=== PATIENT | male | born 1965 | race Caucasian/White ===

== ENCOUNTER → 2016-06-18 | Outpatient (CLI) | payer BC ==
[~2016-06-18] MED LIST: GADAVIST IV PRN; OPTIRAY 320 IV PRN
--- NOTE | 2016-06-18 12:28 | DIAGNOSTIC IMAGING REPORT ---
CT ABD WITH IV AND ORAL CONT (CT) CLINICAL HISTORY: RECTAL CA COMPARISON STUDY: 01/19/2016 TECHNIQUE: Following the IV administration of 93 mL of Optiray-320, CT scan of the abdomen and pelvis was performed from the lung bases to the proximal femurs. Images are reviewed in the axial, sagittal, and coronal planes. IV contrast was administered without complication. CT DOSE: FINDINGS: Lower chest: The heart is normal in size and configuration, without pericardial effusion. The lung bases and pleural spaces are clear. Liver: There is hepatic steatosis. There is a nonspecific 12 mm hypervascular focus within the left lobe superiorly. This appears smaller than the hypodense focus described on the prior January study.. Gallbladder: Unremarkable. Spleen: Normal in size and attenuation. Pancreas: Unremarkable. Adrenal glands: Unremarkable. Kidneys: There is symmetric renal cortical enhancement. The kidneys are normal in size without hydronephrosis. Bowel: There is no pathologic upper abdominal bowel dilatation. No acute inflammatory changes are visualized. Peritoneum: There is no intraperitoneal free air or abdominal ascites. Vasculature: The abdominal aorta is normal in course and caliber. Adenopathy: None. Skeletal structures: No destructive osseous lesions are seen. IMPRESSION: 1. Hepatic steatosis 2. Nonspecific 12 mm hypervascular focus within the left lobe of the liver superiorly. 3. No evidence of pathologic adenopathy. Electronically signed by: Simon Sargent M.D. 06/18/2016 12:27 PM Dictated Date/Time: 06/18/2016 12:21 PM
--- NOTE | 2016-06-18 12:31 | DIAGNOSTIC IMAGING REPORT ---
CT OF THE CHEST WITH IV CONTRAST CLINICAL HISTORY: Rectal cancer. COMPARISON STUDY: Chest CTs #8 2016. TECHNIQUE: Following IV administration of 93 mL of Optiray-320, helical axial images of the chest were obtained. Images were viewed in the axial, sagittal and coronal planes. IV contrast was administered without complication. CT DOSE: 1119.23 mGy.cm FINDINGS: No enlarged axillary, mediastinal or hilar lymph nodes are present. The size of the heart is normal. There is no pericardial effusion. Central airways are patent. There is no consolidation to suggest pneumonia. A 7 mm perifissural nodule within the right upper lobe shown on image [id number] of January 19, 2016. Numerous tiny additional pleural nodules, several which are calcified, measuring up to 2 6 mm are also unchanged. There are no new pulmonary nodules. There are no suspicious osseous lesions. Subtle sclerosis of the left scapular tip is unchanged. The abdomen and pelvis will be reported separate. Fatty infiltration of the liver is noted. A 2 cm hypervascular left hepatic lobe lesion is unchanged in size since prior exam. This favors a hemangioma. IMPRESSION: 1. No convincing evidence of metastatic disease within the chest. 2. No change in several pulmonary nodules, the largest of which is a 7 mm perifissural right upper lobe nodule. These nodules are likely benign but a follow-up chest CT in 6 months to ensure stability is recommended. 3. 2 cm hypervascular left hepatic lobe lesion which is unchanged in size since prior exam and favors a hemangioma. Fatty liver. Electronically signed by: Jarocho Florian M.D. 06/18/2016 12:30 PM Dictated Date/Time: 06/18/2016 12:19 PM
--- NOTE | 2016-06-18 15:16 | DIAGNOSTIC IMAGING REPORT ---
MRI THE PELVIS WITHOUT A WITH GADOLINIUM CLINICAL HISTORY: Rectal carcinoma COMPARISON STUDY: CT scan dated 01/19/2016 FINDINGS: Imaging was performed in the sagittal coronal and axial planes, before and after the administration of 9.5 cc of intravenous Gadavist. There are no foci of pathologic marrow replacement. There is no pathologic bowel dilatation. There is no evidence of pathologic adenopathy. The patient's reported carcinoma is difficult to identify. There is loss of the normal signal differentiation between the muscularis propria and mucosa within the lower rectum. There is decreased signal within the left posterior lateral rectal wall which may represent treated neoplasm. There are no findings to indicate tumor spread into the surrounding perirectal fat. IMPRESSION: 1. The patient's prior rectal carcinoma is difficult to visualize with certainty 2. The perirectal soft tissues appear normal 3. There is no evidence of pathologic adenopathy. Electronically signed by: Simon Sargent M.D. 06/18/2016 3:15 PM Dictated Date/Time: 06/18/2016 2:51 PM
== END | disposition home or self-care (01) ==
LOC: C.CTS 10:53
PROVIDERS: ATTEND Colon & Rectal Surgery
DX: C20 Malignant neoplasm of rectum (principal); K76.0 Fatty (change of) liver, not elsewhere classified

== ENCOUNTER → 2017-01-02 | Outpatient (CLI) | payer BC ==
[2017-01-02 14:33] LABS: BLOOD UREA NITROGEN 15 mg/dl (7-18); CREATININE 1.23 mg/dl (0.60-1.40)
== END | disposition home or self-care (01) ==
LOC: C.LAB 11:45
PROVIDERS: ATTEND Colon & Rectal Surgery
DX: C20 Malignant neoplasm of rectum (principal)

== ENCOUNTER → 2017-01-07 | Outpatient (CLI) | payer BC ==
--- NOTE | 2017-01-07 10:09 | DIAGNOSTIC IMAGING REPORT ---
CT SCAN OF THE ABDOMEN AND PELVIS WITH IV CONTRAST CLINICAL HISTORY: Rectal carcinoma. COMPARISON STUDY: Abdominal CT dated 06/18/2016 and 01/19/2016. Pelvic MRI dated 06/18/2016. TECHNIQUE: Following the IV administration of 94 cc of Optiray 320, CT scan of the abdomen and pelvis is performed from the lung bases to the proximal femora. Images are reviewed in the axial, sagittal, and coronal planes. IV contrast was administered without complication. A dose lowering technique was utilized adhering to the principles of ALARA. CT DOSE: 1311.69 mGy.cm FINDINGS: Lung bases: The heart is normal in size and without pericardial effusion. The lung bases are clear. There is a tiny hiatal hernia. Liver: The contrast-enhanced liver is mildly enlarged measuring 18.3 cm in length. The liver demonstrates diffusely diminished attenuation consistent with hepatic steatosis. There is no intrahepatic biliary ductal dilatation. The hepatic veins and portal veins are patent. A 2.1 cm hypervascular lesion in the left lobe is again seen on image #60. An additional 1.4 cm lesion in the left lobe is also seen on image #60. Both lesions appear to demonstrate small foci of peripheral nodular enhancement. Gallbladder: Unremarkable. Spleen: The spleen is enlarged, measuring 15.8 cm in length. Pancreas: Unremarkable. Adrenal glands: Unremarkable. Kidneys: The contrast enhanced kidneys are normal in size and without hydronephrosis. The kidneys enhance symmetrically. Abdominal vasculature: The abdominal aorta is normal in course and caliber noting mild to moderate atherosclerotic calcification. Bowel: The patient's rectal lesion is not well-visualized. No bowel obstruction is seen. The appendix is well-visualized and normal. Peritoneum: There is no intraperitoneal free air or abdominal ascites. There is a small fat-containing umbilical hernia. Lymphadenopathy: None. Pelvic viscera: The prostate gland is mildly enlarged and heterogeneous. There is median lobe hypertrophy. The bladder wall appears mildly thickened and trabeculated suggesting chronic outlet obstruction. Skeletal structures: No lytic or blastic lesions are seen. IMPRESSION: 1. There is no evidence of metastatic disease in the abdomen or pelvis. 2. No rectal lesion is identified by CT. 3. Hepatomegaly and hepatic steatosis. 4. There are 2 hepatic lesions in the left lobe which measure up to 2.1 cm, unchanged dating back to 01/19/2016. Although incompletely characterized the appearance of these lesions strongly suggests benign hemangiomas. 5. Splenomegaly. 6. Additional findings as above. Electronically signed by: Henry Funk M.D. 01/07/2017 10:08 AM Dictated Date/Time: 01/07/2017 9:57 AM
--- NOTE | 2017-01-07 10:16 | DIAGNOSTIC IMAGING REPORT ---
(CHEST) THORAX WITH CT DOSE: HISTORY: Carcinoma RECTAL CANCER TECHNIQUE: Multiaxial CT images of the chest were performed following the intravenous administration of contrast. A dose lowering technique was utilized adhering to the principles of ALARA. COMPARISON: 06/18/2016 FINDINGS: No change in the minimal basilar nodularity procedure described. The dominant nodule adjacent to the right major fissure is unchanged in maximum dimension of 6 mm. There is no significant mediastinal or hilar adenopathy. No evidence for cardiac enlargement. Small benign hemangioma anterior right hepatic lobe IMPRESSION: Stable examination of the chest with unchanging low suspicion nodularity. A 1 year follow-up is felt to be sufficient The above report was generated using voice recognition software. It may contain grammatical, syntax or spelling errors. Electronically signed by: Tato Champion M.D. 01/07/2017 10:14 AM Dictated Date/Time: 01/07/2017 10:04 AM
--- NOTE | 2017-01-07 13:22 | DIAGNOSTIC IMAGING REPORT ---
MRI OF THE PELVIS COMBO CLINICAL HISTORY: Rectal carcinoma. COMPARISON STUDY: Pelvic MRI dated 06/18/2016. Abdominal CT scans dated 01/19/2016 and 01/07/2017. TECHNIQUE: MRI of the pelvis is performed utilizing various T1 and T2-weighted sequences in the axial, sagittal, and coronal planes. Contrast-enhanced sequences are acquired following the IV administration of 10 cc of Gadavist. FINDINGS: Mild rectal wall thickening is questioned. There is no perirectal inflammation or mass lesion. A 7 mm presacral nodule is seen on axial T1 image 13, and a 4 mm right perirectal nodule is seen on axial image 16. These may reflect tiny lymph nodes and are of indeterminant significance. These have not significantly changed from previous. No pelvic sidewall or inguinal lymphadenopathy is seen. The prostate gland is enlarged and heterogeneous. The bladder wall is mildly thickened and trabeculated consistent with chronic outlet obstruction. The visualized bony pelvis appears intact. The visualized bowel loops are normal in caliber. A normal appendix is identified. IMPRESSION: 1. Question mild rectal wall thickening versus underdistention. No rectal mass lesion is clearly seen and there is no perirectal extension. 2. There are tiny nodules in the left presacral space and the right perirectal space. These may represent tiny lymph nodes and have not significantly changed from prior studies. Dictated: 01/07/2017 11:53 AM Transcribed: 01/07/2017 1:22 PM Jo Ann Electronically signed by: Henry Funk M.D. 01/07/2017 1:29 PM Dictated Date/Time: 01/07/2017 11:53 AM
== END | disposition home or self-care (01) ==
LOC: C.CTS 08:39
PROVIDERS: ATTEND Colon & Rectal Surgery
DX: C20 Malignant neoplasm of rectum (principal); R16.0 Hepatomegaly, not elsewhere classified; K76.0 Fatty (change of) liver, not elsewhere classified; R16.1 Splenomegaly, not elsewhere classified